=== PATIENT | female | born 2000 | race Caucasian/White ===

== ENCOUNTER 2020-12-28 02:20 | Inpatient (IN) ==
[2020-12-28 02:58] LABS: ABS Basophils 0.1 10^3/ul (0-0.2); ABS Lymphocytes 2.1 10^3/ul (1.0-4.8); ABS Monocytes 0.4 10^3/ul (0-0.8); ABS Neutrophils 5.8 10^3/ul (1.5-7.7); Eosinophil % 0.2 %; Hematocrit 43 % (35-47); Hemoglobin 14.6 g/dL (12.0-16.0); Lymphocyte % 25.6 %; Mean Corpuscular HGB Conc 34 g/dL (31-36); Mean Corpuscular Hemoglobin 31 pg (27-31); Mean Corpuscular Volume 91 fL (80-97); Mean Platelet Volume 7.2 fL (7.4-10.4); Platelet Count 309 10^3/uL (150-450); Red Blood Count 4.74 10^6 /uL (3.70-4.87); Red Cell Distribution Width 13 % (10-15); White Blood Count 8.4 10^3/uL (3.5-10.8)
[2020-12-28 03:13] LABS: ALT 12 U/L (7-52); AST 18 U/L (13-39); Albumin 4.9 g/dL (3.2-5.2); Albumin/Globulin Ratio 1.9 (1-3); Alkaline Phosphatase 69 U/L (34-104); Anion Gap 11 mmol/L (2-11); BUN/Creatinine Ratio 17.5 (8-20); Blood Urea Nitrogen 11 mg/dL (6-24); CO2 Carbon Dioxide 21 mmol/L (22-32); Calcium 9.1 mg/dL (8.6-10.3); Chloride 110 mmol/L (101-111); EGFR African American 145.8 (>60); EGFR Non-African American 120.5 (>60); Globulin 2.6 g/dL (2-4); Glucose 85 mg/dL (70-100); Potassium 3.8 mmol/L (3.5-5.0); Sodium 142 mmol/L (135-145); Total Protein 7.5 g/dL (6.4-8.9)
[2020-12-28 03:20] LABS: HCG Pregnancy < 0.60 mIU/mL
[2020-12-28 03:24] LABS: Acetaminophen < 15 mcg/mL; Alcohol, S 292 mg/dL (<10); Salicylate < 2.50 mg/dL (<30)
[2020-12-28 03:40] LABS: TSH Ultra Thyroid Stim Horm 1.47 mcIU/mL (0.34-5.60)
[2020-12-28 08:31] LABS: Urine Appearance Cloudy; Urine Bilirubin Negative (Negative); Urine Blood Negative (Negative); Urine Color Yellow; Urine Glucose Negative (Negative); Urine Ketones Trace (Negative); Urine Nitrite Negative (Negative); Urine Protein Negative (Negative); Urine Specific Gravity 1.008 (1.010-1.030); Urine Urobilinogen Negative (Negative)
[2020-12-28 08:53] LABS: Urine Benzodiazepine Screen None Detected (None Detect); Urine Cannabinoids Screen None Detected (None Detect); Urine Opiates Screen None Detected (None Detect)
[2020-12-28] MEDS ORDERED: Al Hydrox/Mg Hydrox/Simet LIQ 30 ML UDC PO PRN (11:22)
[2020-12-28] MEDS: Vitamin THERAPEUTIC TAB PO SCH (15:33)
[2020-12-29] MEDS: Vitamin THERAPEUTIC TAB PO SCH (08:30)
[2020-12-29 12:02] LABS: HDL Cholesterol 71.3 mg/dL
[2020-12-30] MEDS: Vitamin THERAPEUTIC TAB PO SCH (08:29)
[2020-12-31] MEDS: Vitamin THERAPEUTIC TAB PO SCH (09:12)
[2021-01-01] MEDS: Vitamin THERAPEUTIC TAB PO SCH (08:43)
[2021-01-01 10:52] VITALS: BP 107/63
== END 2021-01-01 11:33 | disposition home or self-care (01) | DRG 885 ==
LOC: ED 02:20 → BSU 11:22
PROVIDERS: ADMIT Psychiatry & Neurology Psychiatry; ATTEND Psychiatry & Neurology Psychiatry